=== PATIENT | female | born 1935 | race Caucasian/White ===

== ENCOUNTER 2023-07-31 08:05 | Inpatient (IN) | payer MEDICARE ==
[~2023-07-31] VITALS: Ht 167.6 cm; Wt 99.3 kg
[2023-07-31] VITALS (10 sets, daily range): BP systolic 137–196; PULSE 73–104; RESP 13–19; TEMP 96.2–98.8; O2SAT 92–97
[2023-07-31 09:45] LABS: BILIRUBIN,URINE NEGATIVE (NEGATIVE); BLOOD, URINE 1+ (NEGATIVE); COLOR,URINE YELLOW (YELLOW); GLUCOSE,URINE NEGATIVE (NEGATIVE); KETONES,URINE NEGATIVE (NEGATIVE); LEUKOCYTE ESTERASE ,URINE NEGATIVE (NEGATIVE); NITRITE, URINE NEGATIVE (NEGATIVE); PH,URINE 7.5 (5.0-8.0); PROTEIN URINE NEGATIVE (NEGATIVE); UROBILINOGEN,URINE 0.2 (0.2-1.0)
[2023-07-31 09:55] LABS: CLARITY/URINE SLIGHTLY HAZY (CLEAR)
[2023-07-31 09:55] LABS: ANION GAP 8 (5-15); CALCIUM 9.8 mg/dL (8.4-11.0); CARBON DIOXIDE 29 mmol/L (23-29); CHLORIDE 101 mmol/L (98-107); CREATININE 0.84 mg/dL (0.55-1.30); GLUCOSE 111 mg/dL (74-106); POTASSIUM 3.9 mmol/L (3.5-5.1); SODIUM SERUM 138 mmol/L (136-145); UREA NITROGEN, BLOOD 13 mg/dL (8-21)
[2023-07-31 10:00] LABS: BACTERIA,URINE RARE /HPF (None Seen); URINE AMORPHOUS PHOSPHATES 1+ /HPF (None Seen); WBC,URINE NONE SEEN /HPF (0-3)
[2023-07-31 10:02] LABS: CHOLESTEROL 130 mg/dL (<200); HDL CHOLESTEROL 78 mg/dL (>55); TRIGLYCERIDES 83 mg/dL (30-150)
[2023-07-31 10:05] LABS: INR 1.1 (0.8-1.2); PROTHROMBIN TIME 11.4 SECS (9.5-12.5)
[2023-07-31 10:36] LABS: BARBITURATE, URINE NEGATIVE (NEG <=200); BENZODIAZEPINE, URINE POSITIVE (NEG <=150); CANNABINOID, URINE NEGATIVE (NEG <=50); COCAINE, URINE NEGATIVE (NEG <=150); METHAMPHETAMINES SCREEN,URINE NEGATIVE (NEG <=500); OPIATE, URINE NEGATIVE (NEG <=100); PHENCYCLIDINE SCREEN,URINE NEGATIVE (NEG <=25); UR TRICYCLIC ANTIDEPRESSANTS NEGATIVE (NEG <=300); URINE AMPHETAMINE NEGATIVE (NEG <=500); URINE METHADONE NEGATIVE (NEG <=200); URINE OXYCODONE SCREEN NEGATIVE (NEG <=100)
[2023-07-31 10:37] LABS: HEMOGLOBIN A1C 5.76 % (<5.7)
[2023-07-31] MEDS ORDERED: iohexoL 350 mgI/mL, 100 ML INFUS..BTL IV ONE (10:37)
[2023-07-31 10:50] LABS: BASOPHILS % (AUTO) 0.3 % (0.0-2.0); EOSINOPHILS % (AUTO) 0.2 % (0.0-4.0); HEMATOCRIT 42.3 % (36-48); LYMPHOCYTES # (AUTO) 1.2 K/uL (1.0-5.5); LYMPHOCYTES % (AUTO) 16.6 % (20.5-51.5); MEAN CORPUSCULAR HEMOGLOBIN 32 pg (27-31); MEAN CORPUSCULAR HGB CONC 33 % (32-36); MEAN CORPUSCULAR VOLUME 96 fL (79.0-98.0); MONOCYTES # (AUTO) 0.5 K/uL (0.0-1.0); MONOCYTES % (AUTO) 6.3 % (1.7-9.3); NEUTROPHILS # (AUTO) 5.5 K/uL (1.8-7.7); NEUTROPHILS % (AUTO) 76.6 % (40.0-70.0); RED CELL DISTRIBUTION WIDTH 15.8 % (9.0-15.0); WHITE BLOOD COUNT (AUTO) 7.2 K/uL (4.8-10.8)
[2023-07-31 10:51] LABS: PLATELET COUNT (AUTO) 86 K/uL (130-430)
[2023-07-31] MEDS ORDERED: NITROGLYCERIN 1 INCH (GM) OINT. TP ONE (11:15)
[2023-07-31 12:04] LABS: COVID19 ANTIGEN SOFIA FIA NEGATIVE (NEGATIVE)
[2023-07-31 12:05] LABS: INFLUENZA TYPE A Negative (NEGATIVE)
[2023-07-31 12:07] LABS: INFLUENZA TYPE B POSITIVE (NEGATIVE)
[2023-07-31] MEDS ORDERED: LEVE750T12 PO (12:31)
[2023-07-31] MEDS ORDERED: FURO20TA4 PO (12:31)
[2023-07-31] MEDS ORDERED: IBRU140C PO (12:31)
[2023-07-31] MEDS ORDERED: POTA-178 (12:31)
[2023-07-31] MEDS ORDERED: OXYB10TA30 PO (12:31)
[2023-07-31] MEDS ORDERED: ATOR10TA68 PO (12:31)
[2023-07-31] MEDS ORDERED: ALLO300T2 PO (12:31)
[2023-07-31] MEDS ORDERED: LISI-209 PO (12:31)
[2023-07-31] MEDS ORDERED: FLUT1BLS11 INH (12:31)
[2023-07-31] MEDS ORDERED: METO25TA6 PO (12:31)
[2023-07-31] MEDS ORDERED: OXAZ10CA3 PO (12:31)
[2023-07-31] MEDS ORDERED: ALBMDI (12:31)
[2023-07-31] MEDS ORDERED: LEVE250T6 PO (12:31)
[2023-07-31] MEDS ORDERED: SUMA50TA16 PO (12:31)
[2023-07-31] MEDS ORDERED: DOXYCYCLINE HYCLATE 100 MG in D5W 100 ML IV ONE (12:45)
[2023-07-31] MEDS ORDERED: IPRATROPIUM/ALBUTEROL SULFATE 3 ML AMPUL.NEB (DUONEB) INH SCH (14:00)
[2023-07-31] MEDS ORDERED: LevETIRAcetam 500 MG/5 ML UDC ORAL LIQUID PO ONE (14:30)
[2023-07-31] MEDS ORDERED: APIXABAN 2.5 MG TABLET PO ONE (14:30)
[2023-07-31] MEDS: D5LR 1,000 ML IV SCH (15:02)
[2023-07-31 16:28] LABS: BILIRUBIN,URINE NEGATIVE (NEGATIVE); BLOOD, URINE 2+ (NEGATIVE); COLOR,URINE YELLOW (YELLOW); GLUCOSE,URINE NEGATIVE (NEGATIVE); KETONES,URINE 1+ (NEGATIVE); LEUKOCYTE ESTERASE ,URINE NEGATIVE (NEGATIVE); NITRITE, URINE NEGATIVE (NEGATIVE); PROTEIN URINE TRACE (NEGATIVE); UROBILINOGEN,URINE 0.2 (0.2-1.0)
[2023-07-31 16:58] LABS: CLARITY/URINE HAZY (CLEAR)
[2023-07-31 17:04] LABS: BACTERIA,URINE FEW /HPF (None Seen); WBC,URINE 0-3 /HPF (0-3)
[2023-07-31 17:05] LABS: MUCUS,URINE None Seen /LPF (None Seen)
[2023-07-31] MEDS: BUDESONIDE 0.5 MG/2 ML AMPUL.NEB INH SCH (19:17)
[2023-07-31] MEDS ORDERED: FLUTICASONE 250 mCg/SALMETEROL 50 mCg DISKUS W.DEV INH SCH (21:00)
[2023-07-31] MEDS ORDERED: levETIRAcetam 500 MG TABLET PO SCH (21:00)
[2023-07-31] MEDS: LevETIRAcetam 500 MG/5 ML UDC ORAL LIQUID GT SCH (21:35)
[2023-07-31] MEDS: APIXABAN 2.5 MG TABLET PO SCH (21:36)
[2023-07-31] MEDS: METOPROLOL TARTRATE 25 MG TABLET PO SCH (21:37)
[2023-07-31] MEDS ORDERED: PANTOPRAZOLE SODIUM 40 MG/VIAL (PROTONIX) IVP ONE (23:00)
[2023-07-31] MEDS ORDERED: IBUPROFEN 400 MG TABLET PO PRN (23:00)
[2023-07-31] MEDS: GENTAMICIN SULFATE 0.3%, 3.5 GM EYE OINT. OP SCH (23:00)
[2023-07-31] MEDS: IPRATROPIUM/ALBUTEROL SULFATE 3 ML AMPUL.NEB (DUONEB) INH SCH (23:01)
[2023-07-31] MEDS ORDERED: ACETAMINOPHEN 325 MG TABLET ONE (23:32)
[2023-08-01] VITALS (26 sets, daily range): BP systolic 94–166; PULSE 64–84; RESP 12–27; TEMP 96.9–97.8; O2SAT 92–99
[2023-08-01] MEDS: ACETAMINOPHEN 325 MG TABLET PO PRN ×2 (00:29→06:12)
[2023-08-01] MEDS: D5LR 1,000 ML IV SCH ×2 (00:33→10:30)
[2023-08-01 05:19] LABS: INR 1.2 (0.8-1.2); PROTHROMBIN TIME 12.7 SECS (9.5-12.5)
[2023-08-01 05:48] LABS: ALANINE AMINOTRANSFERASE 9 U/L (12-78); ALBUMIN 3.1 g/dL (3.4-4.8); ANION GAP 9 (5-15); ASPARTATE AMINOTRANSFERASE 18 U/L (10-37); CALCIUM 9.2 mg/dL (8.4-11.0); CARBON DIOXIDE 31 mmol/L (23-29); CHLORIDE 100 mmol/L (98-107); CREATININE 0.79 mg/dL (0.55-1.30); FREE T4 (FREE THYROXINE) 1.2 ng/dL (0.6-1.6); GLUCOSE 125 mg/dL (74-106); PHOSPHORUS 3.5 mg/dL (2.7-4.5); POTASSIUM 3.3 mmol/L (3.5-5.1); SODIUM SERUM 140 mmol/L (136-145); TOTAL BILIRUBIN 2.7 mg/dL (0.0-1.0); TOTAL PROTEIN, SERUM 6.1 g/dL (6.4-8.3); UREA NITROGEN, BLOOD 9 mg/dL (8-21)
[2023-08-01] MEDS: GENTAMICIN SULFATE 0.3%, 3.5 GM EYE OINT. OP SCH (06:00)
[2023-08-01] MEDS ORDERED: GENTAMICIN SULFATE 0.3%, 3.5 GM EYE OINT. OP SCH (06:00)
[2023-08-01 06:13] LABS: BASOPHILS % (AUTO) 0.6 % (0.0-2.0); EOSINOPHILS % (AUTO) 0.3 % (0.0-4.0); HEMATOCRIT 38.6 % (36-48); HEMOGLOBIN 12.8 g/dL (12.0-16.0); LYMPHOCYTES # (AUTO) 1.9 K/uL (1.0-5.5); LYMPHOCYTES % (AUTO) 28.4 % (20.5-51.5); MEAN CORPUSCULAR HEMOGLOBIN 32 pg (27-31); MEAN CORPUSCULAR HGB CONC 33 % (32-36); MEAN CORPUSCULAR VOLUME 96 fL (79.0-98.0); MONOCYTES # (AUTO) 0.6 K/uL (0.0-1.0); NEUTROPHILS # (AUTO) 4.2 K/uL (1.8-7.7); NEUTROPHILS % (AUTO) 61.7 % (40.0-70.0); PLATELET COUNT (AUTO) 82 K/uL (130-430); RED BLOOD CELL COUNT(AUTO) 4.02 MIL/uL (4.2-6.2); RED CELL DISTRIBUTION WIDTH 16.3 % (9.0-15.0); WHITE BLOOD COUNT (AUTO) 6.8 K/uL (4.8-10.8)
[2023-08-01] MEDS: IPRATROPIUM/ALBUTEROL SULFATE 3 ML AMPUL.NEB (DUONEB) INH SCH ×2 (07:44→15:56)
[2023-08-01] MEDS: BUDESONIDE 0.5 MG/2 ML AMPUL.NEB INH SCH ×2 (07:44→19:46)
[2023-08-01] MEDS: LevETIRAcetam 500 MG/5 ML UDC ORAL LIQUID GT SCH (08:44)
[2023-08-01] MEDS: APIXABAN 2.5 MG TABLET PO SCH (08:45)
[2023-08-01] MEDS: METOPROLOL TARTRATE 25 MG TABLET PO SCH (08:46)
[2023-08-01] MEDS ORDERED: PANTOPRAZOLE SODIUM 40 MG/VIAL (PROTONIX) IVP SCH ×2 (09:00)
[2023-08-01] MEDS ORDERED: ALLOPURINOL 300 MG TABLET (ZYLOPRIM) PO SCH (09:00)
[2023-08-01] MEDS ORDERED: FUROSEMIDE 20 MG TABLET PO SCH (09:00)
[2023-08-01] MEDS: PEG 400/HYPROMELLOSE/GLYCERIN 15 ML DROPS OP SCH ×3 (09:00→17:27)
[2023-08-01] MEDS ORDERED: TOBRAMYCIN SULFATE 0.3% EYE DROPS 5 ML OP ONE (09:00)
[2023-08-01] MEDS ORDERED: POTASSIUM CHLORIDE 10 MEQ TABLET.ER PO SCH (09:00)
[2023-08-01] MEDS ORDERED: PEG 400/HYPROMELLOSE/GLYCERIN 15 ML DROPS OP SCH (09:00)
[2023-08-01] MEDS ORDERED: lisinopriL 5 MG TABLET PO SCH (09:00)
[2023-08-01] MEDS ORDERED: ATORVASTATIN 10 MG TABLET PO SCH (09:00)
[2023-08-01] MEDS: TOBRAMYCIN SULFATE 0.3% EYE DROPS 5 ML OP SCH ×2 (12:56→17:27)
[2023-08-01] MEDS ORDERED: POTASSIUM CHLORIDE 20 MEQ TABLET.ER PO ONE (13:30)
[2023-08-01] MEDS ORDERED: OSELTAMIVIR PHOSPHATE 75 MG CAPSULE PO ONE (13:45)
[2023-08-01] MEDS ORDERED: OSEL75CA PO ×2 (20:00→20:01)
[2023-08-01] MEDS ORDERED: ACETAMINOPHEN 325 MG TABLET PO PRN (20:01)
[2023-08-01] MEDS ORDERED: OSELTAMIVIR PHOSPHATE 75 MG CAPSULE PO SCH (21:00)
== END 2023-08-01 20:35 | disposition short-term general hospital (02) | DRG 193 ==
LOC: SED 08:05 → SIC 12:32
PROVIDERS: ADMIT Internal Medicine; ATTEND Internal Medicine
PROC: 06HY33Z Insertion of Infusion Device into Lower Vein, Percutaneous Approach (ICD-10-PCS; principal; 2023-07-31)
DX: J10.1 Influenza due to other identified influenza virus with other respiratory manifestations (principal); I21.A1 Myocardial infarction type 2; G45.9 Transient cerebral ischemic attack, unspecified; I48.20 Chronic atrial fibrillation, unspecified; E44.1 Mild protein-calorie malnutrition; I69.354 Hemiplegia and hemiparesis following cerebral infarction affecting left non-dominant side; H10.30 Unspecified acute conjunctivitis, unspecified eye; I10 Essential (primary) hypertension; Z20.822 Contact with and (suspected) exposure to COVID-19; I25.10 Atherosclerotic heart disease of native coronary artery without angina pectoris; G40.909 Epilepsy, unspecified, not intractable, without status epilepticus; E78.5 Hyperlipidemia, unspecified; E66.9 Obesity, unspecified; D69.6 Thrombocytopenia, unspecified; M40.209 Unspecified kyphosis, site unspecified; E87.6 Hypokalemia; E04.1 Nontoxic single thyroid nodule; E80.6 Other disorders of bilirubin metabolism; G43.909 Migraine, unspecified, not intractable, without status migrainosus; J43.9 Emphysema, unspecified; Z96.652 Presence of left artificial knee joint; Z88.0 Allergy status to penicillin; Z88.5 Allergy status to narcotic agent; Z88.6 Allergy status to analgesic agent; Z88.8 Allergy status to other drugs, medicaments and biological substances; Z79.01 Long term (current) use of anticoagulants; Z85.72 Personal history of non-Hodgkin lymphomas; Z68.35 Body mass index [BMI] 35.0-35.9, adult; Z90.710 Acquired absence of both cervix and uterus; Z90.49 Acquired absence of other specified parts of digestive tract; Z87.891 Personal history of nicotine dependence
CPT/HCPCS: 36415; 70450; 70496; 70498; 70551; 71045; 76376; 76536-TC; 80048; 80053; 80061; 80307; 81000; 81001; 81015; 83037; 83735; 84100; 84439; 84443; 84484; 85025; 85610-TC; 85730-TC; 86886; 86900; 86901; 87040; 87081; 92610-GN; 93005; 93306; 94640; 95816; 96365; 99291; 99292; C9113; G9035; J3490; J7060; J7626; Q9967